=== PATIENT | female | born 1940 | race African-American/Black ===

== ENCOUNTER 2016-12-27 22:22 | Emergency (ER) | payer OTHER, MEDICAID ==
[~2016-12-27] VITALS: Ht 157.5 cm; Wt 52.2 kg
[~2016-12-27 22:22] MED LIST: ALPR0.2583 PO; ASPI81TA2 PO; ATOR40TA68 PO; CAT.1 PO; DIPH25CA83 PO; DONE10TA44 PO; LISI-600 PO; MEMA28CA PO; METO50TA7 PO; NAPR-227 PO; NOR10 PO; PREDEYE1% LEFT EYE; TYC3 PO
[2016-12-27 22:24] VITALS: BP 152/64; PULSE 58; RESP 18; TEMP 98.3; O2SAT 98
--- NOTE | 2016-12-27 23:08 | NUR ---
Patient to ER bed 06 to gown for evaluation. Side rails up. Report given to Thelma
--- NOTE | 2016-12-27 23:15 | NUR ---
Pt in bed 6 s/p [facility] fall, denies injury Dr Hooper aware.
--- NOTE | 2016-12-28 | NUR ---
ER at bedside examining patient.
--- NOTE | 2016-12-28 00:15 | NUR ---
RETURNED FROM RADIOLOGY. IRRITABLE REQUESTING TO LEAVE , DR LAMA AWARE.
[2016-12-28 01:25] VITALS: BP 148/81; PULSE 78; RESP 18; TEMP 98.3; O2SAT 98
--- NOTE | 2016-12-28 01:25 | NUR ---
Lalo romano in ED - 12/28/16 at 0211 by SDEDWLA RUDY Gudino at bedside examining patient.
--- NOTE | 2016-12-28 01:25 | NUR ---
Patient given written and verbal discharge instructions and verbalizes understanding. ER MD discussed with patient the results and treatment provided. Patient in stable condition. ID arm band removed. NO Rx given. Patient educated on pain management and to follow up with PMD. Pain Scale 0/10. Opportunity for questions provided and answered.
== END 2016-12-28 01:25 | disposition home or self-care (01) ==
LOC: SED 22:22
DX: S09.90XA Unspecified injury of head, initial encounter (principal); I48.91 Unspecified atrial fibrillation; F03.90 Unspecified dementia, unspecified severity, without behavioral disturbance, psychotic disturbance, mood disturbance, and anxiety; E78.4 Other hyperlipidemia; R41.0 Disorientation, unspecified; Z79.82 Long term (current) use of aspirin; W19.XXXA Unspecified fall, initial encounter; Y93.89 Activity, other specified; Y92.89 Other specified places as the place of occurrence of the external cause; Y99.8 Other external cause status
CPT/HCPCS: 70450-TC; 99284